=== PATIENT | male | born 1980 | race Caucasian/White ===

== ENCOUNTER 2020-12-02 13:26 | Observation (INO) | payer BC ==
[~2020-12-02] VITALS: Ht 182.9 cm; Wt 110.0 kg
[~2020-12-02 13:26] MED LIST: AMOXICILLIN500 M2; AMOXICILLIN500 MG PO; CIPROFLOXACN500 MG PO; FLONASE NASAL50 MCG; LORTAB5 PO; MUCINEX600 MG PO; NO HOME MEDS; ULTRAVATE0.051 EX
--- NOTE | 2020-12-02 13:26 | NUR ---
PT IMMEDIATELY TO ER BED 6 FOR TRIAGE AT THIS TIME.
[2020-12-02 14:05] LABS: HEMATOCRIT 42.4 % (39.0-50.0); HEMOGLOBIN 14.3 g/dl (14.0-18.0); IMMATURE GRANULOCYTES 0.1 % (0.0-5.0); MEAN CELL VOLUME 92.2 fL CALC (80.0-100.0); MEAN CORPUSCULAR HGB 31.1 pG CALC (26.0-32.0); MEAN CORPUSCULAR HGB CONC 33.7 g/dL CAL (32.0-36.0); NEUT# 2.68 thou/uL (1.82-7.42); RED BLOOD COUNT 4.6 mill/uL (4.70-6.10); RED CELL DISTRI WIDTH 12.4 % (11.5-15.5)
[2020-12-02 14:17] LABS: ALBUMIN 4.6 g/dL (3.2-5.0); ALKALINE PHOSPHATASE 65 u/l (38-126); AMYLASE 211 u/l (30-110); BUN 14 mg/dL (9-20); BUN/CREATININE RATIO 16 (12-20 (CALC)); CARBON DIOXIDE 27 mmol/l (22-30); CHLORIDE 100 mmol/l (95-108); CREATININE 0.9 mg/dL (0.7-1.3); GFR > 60 ML/MIN (>=60 (CALC)); GFR FOR AFR.AMER. > 60 ML/MIN (>=60 (CALC)); POTASSIUM 3.7 mmol/l (3.5-5.1)
[2020-12-02 14:25] LABS: ANION GAP 13 (6-22 (CALC)); BILIRUBIN, TOTAL 0.7 mg/dL (0.0-1.4); LIPASE 2189 u/l (23-300); SGOT/AST 44 u/l (17-59); SODIUM 136 mmol/l (137-146)
[2020-12-02 14:29] LABS: MYOGLOBIN 21 ng/mL (0 - 121)
--- NOTE | 2020-12-02 15:34 | NUR ---
Reassessment of patient completed. No distress noted.
--- NOTE | 2020-12-02 16:42 | NUR ---
TWO SETS OF BLOOD CULTURES DRAWN.
[2020-12-02 17:06] VITALS: BP 133/80
--- NOTE | 2020-12-02 17:35 | NUR ---
PT ARRIVES TO ROOM 279 VIA WHEELCHAIR ACCOMPANIED BY TD RAINEY. PT IS ALERT AND ORIENTED X 3. PT WITH ABDOMINAL TENDERNESS TO EPIGASTRIC AREA, NOT IN SIGNIFICANT PAIN, BM TODAY. ADMISSION ASSESSMENT COMPLETED WITHOUT ISSUE. IVF HUNG AND ABX INFUSING NOW.
--- NOTE | 2020-12-02 18:25 | NUR ---
PT AMBULATORY IN ROOM DESIRED, GAIT STEADY. IV ABX INFUSING. NO REPORT OF PAIN OR DIARRHEA.
[2020-12-02 20:00] VITALS: BP 122/75
--- NOTE | 2020-12-02 20:00 | NUR ---
PHYSICAL ASSESMENT COMPLETE. PT CURRENTLY DENIES PAIN OR DISCOMFORT. SCHEDULED MEDICATIONS AND PRN MEDICATION ADMINISTERED, SEE E-MAR. PT DENIES ANY NEEDS AT THIS TIME. PLAN OF CARE REVIEWED, PT DENIES QUESTIONS, VERBALIZES UNDERSTANDING. ITEMS WITHIN REACH, BED LOCKED IN LOW POSITION W/ BEDRAILS UP X2. CALL SARABIA WITHIN REACH, AGREES TO CALL PRN.
[2020-12-03] VITALS: BP 113/62
--- NOTE | 2020-12-03 00:03 | NUR ---
PT LAYING IN BED WITH EYES CLOSED, APPEARS TO BE SLEEPING, APPEARS COMFORTABLE AND IN NO DISTRESS. RESPIRATIONS REGULAR AND UNLABORED. 0000 ANTIBIOTICS ADMINISTERED. ITEMS REMAIN WITHIN REACH, CALL SARABIA REMAINS WITHIN REACH. BED REMAINS LOCKED AND IN LOW POSITION WITH BEDRAILS UP X2. WILL CONTINUE TO MONITOR.
[2020-12-03 04:00] VITALS: BP 119/72
--- NOTE | 2020-12-03 04:10 | NUR ---
PT RESTING IN BED, NO SIGNS OF DISTRESS NOTED, RESP EVEN AND UNLABORED. PT VOICES NO NEEDS OR COMPLAINTS AT THIS TIME. CALL LIGHT IN REACH, CONTINUE TO MONITOR.
[2020-12-03 05:34] LABS: HEMATOCRIT 38.7 % (39.0-50.0); HEMOGLOBIN 12.8 g/dl (14.0-18.0); IMMATURE GRANULOCYTES 0.4 % (0.0-5.0); MEAN CELL VOLUME 93.7 fL CALC (80.0-100.0); MEAN CORPUSCULAR HGB CONC 33.1 g/dL CAL (32.0-36.0); NEUT# 2.32 thou/uL (1.82-7.42); RED BLOOD COUNT 4.13 mill/uL (4.70-6.10); RED CELL DISTRI WIDTH 12.7 % (11.5-15.5)
[2020-12-03 05:58] LABS: ALKALINE PHOSPHATASE 58 u/l (38-126); AMYLASE 59 u/l (30-110); ANION GAP 20 (6-22 (CALC)); BILIRUBIN, TOTAL 0.6 mg/dL (0.0-1.4); BUN 11 mg/dL (9-20); BUN/CREATININE RATIO 16 (12-20 (CALC)); CARBON DIOXIDE 22 mmol/l (22-30); CHLORIDE 97 mmol/l (95-108); CREATININE 0.7 mg/dL (0.7-1.3); GFR > 60 ML/MIN (>=60 (CALC)); GFR FOR AFR.AMER. > 60 ML/MIN (>=60 (CALC)); LIPASE 111 u/l (23-300); POTASSIUM 4.1 mmol/l (3.5-5.1); SGOT/AST 42 u/l (17-59); SODIUM 135 mmol/l (137-146)
[2020-12-03 06:03] LABS: ALBUMIN 3.4 g/dL (3.2-5.0); TOTAL PROTEIN 6.2 g/dL (6.3-8.2)
[2020-12-03 07:25] VITALS: BP 112/61
--- NOTE | 2020-12-03 07:42 | NUR ---
DR LILLY CALLED AND INQUIRED ABOUT THE EKG, WILL ORDER AN ECHO AND ASA
--- NOTE | 2020-12-03 07:50 | NUR ---
ASSESSMENT IS COMPLTED:IV SITE IS FREE FROM REDNESS OR EDEMA.HR IS REG,PULSES ARE STRONG X4, ABD IS SOFT WITH ACTIVE BS. BREATH SOUNDS ARE CLEAR BILATERALLY, TELE MONITOR IN PLACE.
[2020-12-03 10:25] LABS: CHOLESTEROL HDL RATIO 4.2 (<4.4 (CALC))
--- NOTE | 2020-12-03 12:30 | NUR ---
PT CONTINUES TO RELAX WITH NO DISTRESS NOTED. IV SITE IS FREE FROMREDNESS OR EDEMA.
[2020-12-03] MEDS ORDERED: PROTONIX40 M2 PO (13:05)
[2020-12-03] MEDS ORDERED: ULTRAM50 M1 PO (13:07)
--- NOTE | 2020-12-03 14:42 | NUR ---
DISCHARGE INSTRUCTIONS GIVEN AND VERBALIZED UNDERSTANDING.IV SITE DISCONITNUED CATHETER INTACT.NO REDNESS OR EDEMA.
== END 2020-12-03 14:36 | disposition home or self-care (01) | DRG 440 ==
LOC: ED 13:26 → ED-I 16:05 → ED 16:26 → MS2 16:27
PROVIDERS: Emergency Medicine; Nurse Practitioner; ADMIT Internal Medicine; ATTEND Internal Medicine
DX: K85.90 Acute pancreatitis without necrosis or infection, unspecified (principal); Z20.822 Contact with and (suspected) exposure to COVID-19
CPT/HCPCS: G0378; Q9967; S0164